=== PATIENT | male | born 1995 | race Two or more races ===

== ENCOUNTER 2024-10-26 12:21 | Emergency (ER) | payer OTHER ==
[~2024-10-26] VITALS: Ht 182.9 cm; Wt 117.6 kg
[2024-10-26 13:56] VITALS: BP 124/71; PULSE 78; RESP 16; TEMP 98.9; O2SAT 98
--- NOTE | 2024-10-26 14:02 | ED.PDOC ---
Musculoskeletal HPI Comments A 28-year-old male with no past medical history presents to the emergency department with a chief complaint of RT hand pain onset 3 weeks. Patient states he was at work, pulling a trigger when he began experiencing RT hand pain. He noticed pain is RT hand, 4th digit, is unable to fully flex 4th digit. Rates pain 7/10, described as a sharp pain. No other symptoms or modifying factors present at this time. Denies fevers chills night sweats nausea vomiting redness around the shoulder, hand, arm Denies previous surgeries to the shoulder, hand or significant injury Numbness/tingling down the arm Denies changes, shortness of breath Denies head injury, LOC Chief Complaint: Upper Extremity Time Seen by MD: 13:50 Primary Care Provider: NONE Reviewed Notes: Nurses Notes, Medications, Allergies Allergies: Coded Allergies: NO KNOWN ALLERGIES (Unverified , 10/26/24) Information Source: Patient Mode of Arrival: Ambulatory Location: Right Extremity Location: Finger 4, Hand Timing: Weeks Prehospital treatment: None Severity: Moderate Able to Move Extremity: Yes Bear Weight: Limited Pain: Moderate Hand Dominance: Right Mechanism: Spontaneous Circumstances: Altercation Onset of Symptoms: After Trauma Symptoms: Pain DVT Risk Factors: NONE Associated signs and symptoms: Other Past Medical History PAST MEDICAL HISTORY: Denies Surgical History: Denies all surgeries Family History Family History: Reviewed,noncontributory to illness, No family hx of Cancer, No family hx of DM, No family hx of Heart laury, No family hx of HTN, No family hx ofKidney laury, No family hx of Liver laury, No family hx of Lung laury, No family hx of Stroke Social History Smoker: Non-Smoker Alcohol: Denies ETOH Use Drugs: Denies Drug Use Lives In: Home All Other Systems: Reviewed and Negative (as per HPI) Physical Exam General Appearance: No Apparent Distress, Normal HEENT: Normal ENT Inspection, Pharynx Normal, TMs Normal Neck: Full Range of Motion, Non-Tender, Normal, Normal Inspection Respiratory: Chest Non-Tender, Lungs Clear, No Accessory Muscle Use, No Respiratory Distress, Normal Breath Sounds Cardiovascular: No Edema, No JVD, No Murmur, No Gallop, Normal Peripheral Pulses, Regular Rate/Rhythm Breast Exam: Deferred Gastrointestinal: No Organomegaly, Non Tender, No Pulsatile Mass, Normal Bowel Sounds, Soft Genitalia: Deferred Pelvic: Deferred Rectal: Deferred Extremities: No calf tenderness, Normal capillary refill, No pedal edema Musculoskeletal : Location: Left Extremity Location: Finger 4 (pain to DIP radiates to MCP, aggrivated with flexion and extension. Pin point tenderness to A1 daniel) Apperance: Normal Neurologic: Alert, meat hanger II-XII nml as Tested, No Motor Deficits, Normal Affect, Normal Mood, No Sensory Deficits Cerebellar Function: Normal Reflexes: Normal Skin: Dry, Normal Color, Warm Lymphatic: No Adenopathy Was a procedure done? Was a procedure done?: No Differential Diagnosis EXT Differential Diagnosis: Sprain X-Ray, Labs, Meds, VS Vital Signs Date Time Temp Pulse Resp B/P (MAP) Pulse Ox O2 Delivery O2 Flow Rate FiO2 10/26/24 13:56 78 16 98 Room Air 10/26/24 13:56 98.9 78 16 124/71 (88) 98 98.9 10/26/24 12:38 98.9 78 16 14/71 (52) 98 98.9 X-Ray, Labs, Meds, VS Comment A 28-year-old male with no past medical history presents to the emergency department with a chief complaint of RT hand pain onset 3 weeks. Patient arrives alert and oriented, ABC's intact, afebrile, vital signs stable, saturating well in room air Findings consistent with trigger finger. Based on show decision-making patient agreed to conservative treatment at this time and will follow up with the PCP Patient is stable for discharge at this time. External notes reviewed. Test results and diagnostic imaging interpreted. All diagnostic findings, discharge care, education and instructions provided Follow-up with PCP in 2 to 3 days Patient verbalized understanding and agreed to treatment plan Vital signs stable, afebrile, no acute distress noted Patient ambulatory with strong steady gait Advised to return precautions for any new or worsening symptoms, return to ER immediately for re-evaluation Patient is aware that the purpose of this visit was for an acute medical emergency requiring emergent stabilization. Chronic conditions, including malignancies have not been ruled out. Patient is instructed to follow up with PCP as directed and discharge instructions for continued care and workup. If unable to arrange follow-up, patient is to return to the emergency department for reassessment. Patient (parent or legal guardian if applicable) was given verbal and written discharge instructions and acknowledges understanding. Additional MDM Review of External, Non-ED records: External records reviewed. Discussion with independent historian (EMS, family) history obtained from the patient/parents (if applicable) at bedside Chronic conditions affecting care: None Social determinants of health affecting care: None Consideration of admission (observation or admission): I considered escalation of care to admission for this patient, however given the reassuring workup, the patient is safe for outpatient management. Time of 1ST Reevaluation: 14:20 Reevaluation 1ST: Improved Patient Education/Counseling: Diagnosis, Treatment, Need For Follow Up Family Education/Counseling: No Family Present Departure 1 Departure Time of Disposition: 14:01 Impression: Primary Impression: Trigger finger Qualified Codes: M65.341 - Trigger finger, right ring finger Disposition: 01 HOME / SELF CARE / HOMELESS Condition: Stable Discharged With: Self Critical Care Note Critical Care Time?: No Stability Stability form required: No Heart Score Heart Score: Heart Score Response (Comments) Value History N/A 0 EKG N/A 0 Age N/A 0 Risk Factors N/A 0 Troponin N/A 0 Total 0 I personally scribed for RAHEL GRIFFITH NP ([email or web address]) on 10/26/24 at 14:21. Electronically submitted by Allyson Espinal ([email or web address]). RAHEL GRIFFITH NP Oct 26, 2024 14:02
== END 2024-10-26 14:09 | disposition home or self-care (01) ==
LOC: ER 12:21
DX: M65.341 Trigger finger, right ring finger (principal)